=== PATIENT | male | born 1990 | race Hispanic/Latino ===

== ENCOUNTER 2018-09-08 11:45 | Inpatient (IN) | payer OTHER | END 2018-09-11 10:13 | disposition home or self-care (01) | LOC: EDH 11:45 → EDHIP 16:36 → 3DH 23:45 | DX: J98.01 Acute bronchospasm (principal); J18.9 Pneumonia, unspecified organism; R06.03 Acute respiratory distress ==

== ENCOUNTER 2023-08-21 21:28 | Emergency (ER) | payer BC, OTHER ==
[~2023-08-21] VITALS: Ht 170.2 cm; Wt 125.2 kg
[~2023-08-21 21:28] MED LIST: AZIT500T4 PO; GUAI5SYR PO; PRED20TA3 PO
[2023-08-21] MEDS ORDERED: LACTATED RINGERS 1000ML 1,000 ML IV ONE (22:30)
[2023-08-21] MEDS ORDERED: FAMOTIDINE 20MG VIAL IV ONE (22:30)
[2023-08-21] MEDS ORDERED: GUAIFENESIN 600 MG TABLET.ER PO ONE (22:30)
[2023-08-21] MEDS ORDERED: METOCLOPRAMIDE 10 MG/2 ML VIAL IVP ONE (22:30)
[2023-08-21] MEDS ORDERED: ALBUTEROL 0.083% 2.5 MG/3 ML INH IH ONE (22:30)
[2023-08-21] MEDS ORDERED: KETOROLAC 30MG VIAL (30MG/ML) IVP ONE (22:30)
[2023-08-21 22:36] LABS: BASOPHILS # (AUTO) 0.03 K/uL (0.00-0.20); BASOPHILS % (AUTO) 0.2 % (0.0-5.0); HEMATOCRIT 40.1 % (42-54); IMMATURE GRANULOCYTE ABSOLUTE 0.17 K/uL (0-1); LYMPHOCYTES # (AUTO) 0.9 K/uL (1.0-4.8); LYMPHOCYTES % (AUTO) 6.4 % (21.0-51.0); MEAN CORPUSCULAR HEMOGLOBIN 30.2 pg (27.0-33.0); MEAN CORPUSCULAR HGB CONC 34.2 g/dL (32.0-36.0); MEAN CORPUSCULAR VOLUME 88.3 fL (79-99); MONOCYTES # (AUTO) 1.3 K/uL (0.1-1.0); MONOCYTES % (AUTO) 9.5 % (3.0-13.0); NEUTROPHILS # (AUTO) 11.4 K/uL (1.8-7.7); NEUTROPHILS % (AUTO) 82.7 % (40.0-77.0); PLATELET COUNT (AUTO) 341 K/uL (130-400); RED BLOOD CELL COUNT(AUTO) 4.54 MIL/uL (4.50-6.20); RED CELL DISTRIBUTION WIDTH 12.9 % (11.0-15.5); WHITE BLOOD COUNT (AUTO) 13.8 K/uL (4.8-10.8)
[2023-08-21 22:46] LABS: POTASSIUM 3.9 mmol/L (3.5-5.1)
[2023-08-21 22:50] LABS: ALBUMIN 3.3 g/dL (3.5-5.0); BILIRUBIN,TOTAL 0.1 mg/dL (0.2-1.0); TOTAL PROTEIN, SERUM 7.3 g/dL (6.0-8.3)
[2023-08-21 22:53] LABS: SARS-CoV-2, RNA, NAAT NEGATIVE SARS CoV-2 (NEGATIVE)
[2023-08-21 23:00] LABS: INFLUENZA TYPE A Negative For Type A (NEGATIVE); INFLUENZA TYPE B Negative For Type B (NEGATIVE)
[2023-08-21 23:06] LABS: WBC MORPHOLOGY CONSISTENT W/DIFF
[2023-08-21 23:13] VITALS: PULSE 89; RESP 20
[2023-08-21 23:39] LABS: RAPID GROUP A STREP positive (NEGATIVE)
[2023-08-21] MEDS ORDERED: PENI500T2 PO (23:51)
[2023-08-21] MEDS ORDERED: ALBUHFA IH (23:51)
[2023-08-21] MEDS ORDERED: AUD IH (23:51)
[2023-08-21] MEDS ORDERED: BENZ-39 PO (23:51)
[2023-08-21 23:55] VITALS: BP 132/77; PULSE 87; RESP 17; O2SAT 97
[2023-08-22] MEDS ORDERED: CEFTRIAXONE 2GM VIAL IVPB ONE
== END 2023-08-22 00:02 | disposition home or self-care (01) ==
LOC: EDH 21:28
DX: J20.8 Acute bronchitis due to other specified organisms (principal); J02.0 Streptococcal pharyngitis; Z79.52 Long term (current) use of systemic steroids; Z20.822 Contact with and (suspected) exposure to COVID-19
CPT/HCPCS: 99284; 96374; 96375; 71045; 87635; 96361; 80053; 85025; 87880; 87804 ×2; 36415; 94640; C9803; J7120; J3490; J0696; J1885; J2765